=== PATIENT | male | born 2000 | race Caucasian/White ===

== ENCOUNTER 2024-09-20 15:55 | Emergency (ER) | payer BC ==
[~2024-09-20] VITALS: Ht 185.4 cm; Wt 68.0 kg
[2024-09-20 15:59] VITALS: BP 132/58; TEMP 98; O2SAT 97
[2024-09-20] MEDS ORDERED: AMOX-430 PO (16:14)
[2024-09-20] MEDS ORDERED: IBUP-1490 PO (16:14)
[2024-09-20] MEDS ORDERED: KETOROLAC TROMETHAMINE 15 MG/ML VIAL ONE (16:17)
[2024-09-20] MEDS: KETOROLAC TROMETHAMINE 15 MG/ML VIAL IM ONE (16:20)
== END 2024-09-20 16:44 | disposition home or self-care (01) ==
LOC: ER 16:06
DX: K04.7 Periapical abscess without sinus (principal)
CPT/HCPCS: 99283; 96372; J1885